=== PATIENT | male | born 1985 | race African-American/Black ===

== ENCOUNTER 2018-05-19 03:57 | Emergency (ER) | payer OTHER ==
[~2018-05-19] VITALS: Ht 167.6 cm; Wt 83.9 kg
[~2018-05-19 03:57] MED LIST: ACYCLOVIR 400400 MG PO; CELEXA20 MG PO; IBUPROFEN 800800 MG PO; NAPROSYN500 MG PO; NOHOMEMEDICATIONS; NORCO 5-325 TA1 EACH PO; TESSALON PERLE100 MG PO; TOPAMAX 100 MG100 MG PO; ULTRAM 50MG TAB50 MG PO; ZPAK PO
[2018-05-19 04:24] VITALS: BP 137/92
== END 2018-05-19 04:28 | disposition home or self-care (01) ==
LOC: ER 03:57
DX: M54.5 Low back pain (principal)

== ENCOUNTER 2019-03-16 08:42 | Emergency (ER) | payer OTHER ==
[~2019-03-16] VITALS: Ht 165.1 cm; Wt 86.2 kg
[2019-03-16] MEDS ORDERED: IBUPROFEN 600600 M1 PO (10:53)
[2019-03-16] MEDS ORDERED: PROMETH-CODEIN 65 ML PO (10:53)
[2019-03-16 11:08] VITALS: BP 138/92
== END 2019-03-16 11:19 | disposition home or self-care (01) ==
LOC: ER 08:42
DX: J06.9 Acute upper respiratory infection, unspecified (principal); R11.2 Nausea with vomiting, unspecified; R50.9 Fever, unspecified; M79.10 Myalgia, unspecified site; R05 Cough